=== PATIENT | female | born 1990 | race Caucasian/White ===

== ENCOUNTER 2019-07-12 11:38 | Emergency (ER) | payer MEDICAID ==
[~2019-07-12] VITALS: Ht 165.1 cm; Wt 63.5 kg
[2019-07-12 11:43] VITALS: BP 134/84
--- NOTE | 2019-07-12 11:45 | NUR ---
PT TAKEN TO BED 1.
--- NOTE | 2019-07-12 12:12 | NUR ---
PT BIB SELF C/O SORE THROAT X2 DAYS. PT STATES THAT IT [id number] WITH COUHG AND BODY ACHES ON MONDAY, BUT NOW ONLY HAS SORE THROAT. ACHY PAIN AT 8/10 THAT RADIATES TO RT EAR AND INCREASES W/ SWALLOWING, PT TX WITH NYQUIL AND DAYGUIL W/ SOME RELIEF. TONSILS + EDEMA, + ERYTHEMA, + EXUDATE. AIRWAY PATENT, VOICE CLEAR, NO EXCESS DROOLING, RR EVEN AND NON LABORED, BREATH SOUNDS CLEAR THROUGHOUT. VSS. ER TO SEE PT. MEDHX:DENIES RX:DAYQUIL AND NYQUIL
[2019-07-12] MEDS ORDERED: DEXAMETHASONE 10 MG/ML VIAL IM ONE (12:15)
[2019-07-12] MEDS ORDERED: IBUPROFEN 600 MG TAB PO ONE (12:30)
[2019-07-12 14:44] VITALS: BP 95/65
--- NOTE | 2019-07-12 14:44 | NUR ---
Patient discharged with v/s stable. Written and verbal after care instructions given and explained. Patient alert, oriented and verbalized understanding of instructions. Ambulatory with steady gait. All questions addressed prior to discharge. ID band removed. Patient advised to follow up with PMD. Rx of claritin given. Patient educated on indication of medication including possible reaction and side effects. Opportunity to ask questions provided and answered.
== END 2019-07-12 14:44 | disposition home or self-care (01) ==
LOC: MED 11:38
DX: J02.8 Acute pharyngitis due to other specified organisms (principal); B97.89 Other viral agents as the cause of diseases classified elsewhere; H92.01 Otalgia, right ear
CPT/HCPCS: 81025; 87081; 96372; 99283; J1100

== ENCOUNTER 2024-08-19 23:45 | Emergency (ER) | payer SELFPAY ==
[~2024-08-19] VITALS: Ht 165.1 cm; Wt 67.1 kg
[2024-08-19 23:50] VITALS: BP 129/79; PULSE 80; RESP 20; TEMP 97.5; O2SAT 100
[2024-08-20] MEDS ORDERED: ALUMINUM HYD/MAG/SIMETHICONE 30 ML UDC ONE (00:20)
[2024-08-20] MEDS ORDERED: DICYCLOMINE HCL LIQUID 10 MG/5 ML UDC ONE (00:20)
[2024-08-20 00:21] LABS: APPEARANCE,URINE CLEAR (CLEAR); BILIRUBIN,URINE 1+ (NEGATIVE); BLOOD, URINE NEGATIVE (NEGATIVE); COLOR,URINE YELLOW (YELLOW); LEUKOCYTE ESTERASE ,URINE NEGATIVE (NEGATIVE); NITRITE, URINE NEGATIVE (NEGATIVE); PROTEIN,URINE TRACE (NEGATIVE); UGLUCOSE NEGATIVE (NEGATIVE); UROBILINOGEN,URINE 0.2 EU/dL (0.2 - 1)
[2024-08-20 00:24] LABS: ICTOTEST POSITIVE (NEGATIVE)
[2024-08-20] MEDS: ONDANSETRON 4 MG ODT PO ONE (00:24)
[2024-08-20] MEDS: FAMOTIDINE 20 MG TAB PO ONE (00:24)
[2024-08-20] MEDS: DICYCLOMINE HCL LIQUID 20 MG, ALUMINUM HYD/MAG/SIMETHICONE 30 ML, LIDOCAINE VISCOUS 2% ... PO ONE (00:25)
[2024-08-20] MEDS: NACL 0.9% 1,000 ML IV ONE (00:32)
[2024-08-20 00:57] LABS: BASOPHILS # (AUTO) 0.2 K/uL (0.00-0.22); BASOPHILS % (AUTO) 1.4 % (0.0-2.0); EOSINOPHILS # (AUTO) 0.1 K/uL (0-0.4); EOSINOPHILS % (AUTO) 0.5 % (0.0-4.0); HEMATOCRIT 38.9 % (36-48); HEMOGLOBIN 13.2 g/dL (12.0-16.0); LYMPHOCYTES # (AUTO) 0.6 K/uL (2.5-16.5); LYMPHOCYTES % (AUTO) 3.5 % (20.5-51.1); MEAN CORPUSCULAR HEMOGLOBIN 31 pg (27-31); MEAN CORPUSCULAR HGB CONC 34 g/dL (33-37); MEAN CORPUSCULAR VOLUME 89.8 fL (80-94); MONOCYTES # (AUTO) 0.7 K/uL (0.8-1.0); MONOCYTES % (AUTO) 4.2 % (1.7-9.3); NEUTROPHILS % (AUTO) 90.4 % (42.2-75.2); PLATELET COUNT (AUTO) 294 K/uL (140-450); RED BLOOD CELL COUNT(AUTO) 4.33 MIL/uL (4.20-5.40); RED CELL DISTRIBUTION WIDTH 12.5 % (11.6-13.7); WHITE BLOOD COUNT (AUTO) 16.6 K/uL (4.8-10.8)
[2024-08-20 01:12] LABS: ANION GAP 17.7 (8-16); CALCIUM 9.9 mg/dL (8.5-10.1); CARBON DIOXIDE 23.2 mmol/L (21-32); CREATININE 0.8 mg/dL (0.6-1.3); POTASSIUM 3.9 mmol/L (3.5-5.1)
[2024-08-20] MEDS: METOCLOPRAMIDE 10 MG/2 ML INJ VIAL IVP ONE (01:18)
[2024-08-20 01:32] LABS: BILIRUBIN,DIRECT 0.2 mg/dL (0.0-0.3); TOTAL BILIRUBIN 0.7 mg/dL (0.0-1.0); TOTAL PROTEIN, SERUM 8.1 g/dL (6.4-8.2)
[2024-08-20 01:33] LABS: ALBUMIN 4.5 g/dL (3.4-5.0)
[2024-08-20 02:54] VITALS: O2SAT 100
[2024-08-20] MEDS: KETOROLAC 30 MG/ML VIAL IVP ONE (02:58)
[2024-08-20 03:21] VITALS: BP 113/61; PULSE 68; RESP 18; O2SAT 99
[2024-08-20] MEDS: ONDANSETRON 4 MG/2 ML VIAL IVP ONE (03:23)
[2024-08-20] MEDS ORDERED: IBUP-2213 PO (04:55)
[2024-08-20] MEDS ORDERED: ONDA-188 SL (04:55)
== END 2024-08-20 05:19 | disposition home or self-care (01) ==
LOC: MED 23:45
DX: K80.50 Calculus of bile duct without cholangitis or cholecystitis without obstruction (principal); Z79.899 Other long term (current) drug therapy
CPT/HCPCS: 36415; 76705; 80048; 80076; 81003; 81025; 83690; 85025; 96361; 96374; 96375; 99285; J1885; J2405; J2765; J7030; Q0162; 93005